=== PATIENT | male | born 1955 | race Caucasian/White ===

== ENCOUNTER → 2017-07-18 | Outpatient (CLI) | payer OTHER | LOC: FIMAGING 08:55 | PROVIDERS: ATTEND Internal Medicine | DX: R91.1 Solitary pulmonary nodule (principal) ==

== ENCOUNTER 2017-09-12 09:02 | Day surgery (SDC) | payer OTHER ==
[2017-09-12] MEDS ORDERED: MIDAZOLAM 2 MG/2 ML VIAL IVP PRN (09:06)
[2017-09-12] MEDS ORDERED: NALOXONE HCL 0.4 MG/ML INJ IVP PRN (09:06)
[2017-09-12] MEDS ORDERED: FLUMAZENIL 0.5 MG/5 ML MDV IVP PRN (09:06)
[2017-09-12] MEDS ORDERED: fentaNYL 100 MCG/2 ML INJ IVP PRN (09:06)
[2017-09-12] MEDS ORDERED: NS 1,000 ML IV SCH (09:15)
[2017-09-12 10:11] LABS: INR 1.36 (0.83-1.16); PROTIME(PATIENT) 16.9 SEC (12.0-15.0)
[2017-09-12] MEDS ORDERED: LIDOCAINE 1% 300 MG/30 ML SDV ONE (10:26)
--- NOTE | 2017-09-12 10:33 | PDGENHP ---
History & Physical Chief Complaint: MULTIPLE HOT LN ON PET CT History of Present Illness: RT SHOULDER AND MEDIASTINAL LN Pertinent Past, Social, Family History: NO KNOWN H/O C/A; AFIB, NEPHRITIS KID Relevant Physical Exam: NO DISTRESS; NO IVY Cardiorespiratory Assessment: RRR, CTA
--- NOTE | 2017-09-12 10:34 | PDPROPOC ---
Sedation Plan of Care Sedation Plan of Care: vital signs stable, mental status noted, patient educated of risks, benefits, alternatives, patient can tolerate sedation ASA Classification: ASA 2 Planned drugs: fentanyl, midazolam Mallampati Score: Class 3 Mallampati Reference Image: Patient passed 3-3-2 rule?: Yes
[2017-09-12] MEDS ORDERED: ACETAMINOPHEN 325 MG TAB PO PRN (12:12)
[2017-09-12] MEDS ORDERED: ONDANSETRON 4 MG/2 ML VIAL IVP PRN (12:12)
--- NOTE | 2017-09-12 12:12 | PDRADPN ---
Radiology Procedure Note Date of Procedure: 09/12/17 Radiologist: Mariella Ordoñez Anesthesia: IV Sedation Pre-op Diagnosis: HOT LYMPH NODES Post-op Diagnosis: SAME Indication: UNKNOWN CAUSE Procedure: CT AND US GUIDED BIOPSIES Finding(s): ADEQUATE SAMPLES OBTAINED PER PATHOLOGY Inf/Abcess present in the surg proc area at time of surgery?: No Complications: NONE
[2017-09-12 12:49] VITALS: BP 126/76
== END 2017-09-12 12:41 | disposition home or self-care (01) ==
LOC: FIMAGING 09:02
PROVIDERS: ATTEND Internal Medicine Pulmonary Disease
PROC: 07B83ZX Excision of Right Internal Mammary Lymphatic, Percutaneous Approach, Diagnostic (ICD-10-PCS; principal; 2017-09-12 12:10)
DX: C82.02 Follicular lymphoma grade I, intrathoracic lymph nodes (principal)
CPT/HCPCS: 88184-90; 88185-91; J2250; J3010